=== PATIENT | male | born 1995 | race Caucasian/White ===

== ENCOUNTER 2017-10-05 20:19 | Emergency (ER) | payer MEDICAID, SELFPAY ==
[2017-10-05 20:20] VITALS: BP 128/95; PULSE 82; RESP 16; TEMP 37.2; O2SAT 97; BMI 18.2
--- NOTE | 2017-10-05 20:59 | ED.VISSUMM ---
- ER Visit Summary Date of Service: 10/05/17 Chief Complaint: [] Right lower incisor dental pain started yesterday or today History of Present Illness: The patient is a 22 M [] symptoms for a few days he indicates he began with pain over her his right lower incisor has a history of dental decay infections, most of his upper teeth has been removed and he has a partial denture he has had no fever no cough, no trauma no difficult swallowing or breathing. He points directly to the right lower incisor as the focus of his pain Physical Examination: [] Lying flat in the bed is no distress he is afebrile he has pain over this tooth he has some minimal swelling over the gumline here. His tongue is flat his airways intact he is able to open his mouth fully. There is no signs of deep space infection airway compromise or anything life-threatening or acute, he has some scattered other dental decay and again he has a partial upper denture, he assures me he has had no trauma no fever Test Results: [] Emergency Department Course and Treatment: [] Splint all the above to the patient I explained the concept of an infection involving the tooth could spread to the rest of his mouth and cause serious complications that could be life-threatening, at this time he started on Pen-Vee K, he is given one [place] a shot of Toradol and he does have a dentist he can see in a few days and return for change in symptoms and complete the penicillin prescription Treatment Plan: [] Disposition: [] Home stable Impression: [] Dental infection causing dental pain This note was generated with [employer] dictation software. It may contain incorrect words, spelling, and punctuation that were not noted in review of the chart prior to signing ED Disposition - Plan for ED Patient: Chief Complaint: Dental Referrals: Care Physician,No Primary [Primary Care Provider] -
--- NOTE | 2017-10-05 21:05 | ED.DCSUM_ITS ---
- ER Visit Summary Date of Service: 10/05/17 Chief Complaint: [] Right lower incisor dental pain started yesterday or today History of Present Illness: The patient is a 22 M [] symptoms for a few days he indicates he began with pain over her his right lower incisor has a history of dental decay infections, most of his upper teeth has been removed and he has a partial denture he has had no fever no cough, no trauma no difficult swallowing or breathing. He points directly to the right lower incisor as the focus of his pain Physical Examination: [] Lying flat in the bed is no distress he is afebrile he has pain over this tooth he has some minimal swelling over the gumline here. His tongue is flat his airways intact he is able to open his mouth fully. There is no signs of deep space infection airway compromise or anything life- threatening or acute, he has some scattered other dental decay and again he has a partial upper denture, he assures me he has had no trauma no fever Test Results: [] Emergency Department Course and Treatment: [] Splint all the above to the patient I explained the concept of an infection involving the tooth could spread to the rest of his mouth and cause serious complications that could be life-threatening, at this time he started on Pen-Vee K, he is given one [place] a shot of Toradol and he does have a dentist he can see in a few days and return for change in symptoms and complete the penicillin prescription Treatment Plan: [] Disposition: [] Home stable Impression: [] Dental infection causing dental pain This note was generated with [employer] dictation software. It may contain incorrect words, spelling, and punctuation that were not noted in review of the chart prior to signing ED Disposition - Plan for ED Patient: Chief Complaint: Dental Referrals: Care Physician,No Primary [Primary Care Provider] -
--- NOTE | 2017-10-05 21:05 | ED.DEP ---
ED Disposition - Plan for ED Patient: Chief Complaint: Dental Instructions: ED Tooth Pain Prescriptions: Hydrocodone Bitart/Apap 5-325 [[place] 5/325] 1 - 2 tab PO Q4H PRN PRN #12 tab PRN Reason: Pain Naproxen [Naprosyn] 500 mg PO BID PRN #20 tab Penicillin V Potassium 500 mg PO 4X/DAY #40 tab Referrals: Care Physician,No Primary [Primary Care Provider] -
--- NOTE | 2017-10-05 21:09 | DCINST.ED_ITS ---
ED Disposition - Plan for ED Patient: Chief Complaint: Dental Instructions: ED Tooth Pain Prescriptions: Hydrocodone Bitart/Apap 5-325 [[place] 5/325] 1 - 2 tab PO Q4H PRN PRN #12 tab PRN Reason: Pain Naproxen [Naprosyn] 500 mg PO BID PRN #20 tab Penicillin V Potassium 500 mg PO 4X/DAY #40 tab Referrals: Care Physician,No Primary [Primary Care Provider] -
[2017-10-05] MEDS: Ketorolac 30 MG/ML Syringe IM (21:16)
== END 2017-10-05 21:31 | disposition home or self-care (01) ==
PROVIDERS: Emergency Provider Emergency Medicine
DX: K08.89 Other specified disorders of teeth and supporting structures (principal)
CPT/HCPCS: 96372; 99281

== ENCOUNTER 2017-12-07 16:44 | Emergency (ER) | payer MEDICAID, SELFPAY ==
[2017-12-07 16:46] VITALS: BP 139/64; PULSE 81; RESP 16; TEMP 37.5; O2SAT 100; BMI 20.9
--- NOTE | 2017-12-07 16:55 | EKG12_ITS ---
Test Reason : DYSRHYTHMIA Blood Pressure : / mmHG Vent. Rate : 069 BPM Atrial Rate : 069 BPM P-R Int : 142 ms QRS Dur : 086 ms QT Int : 348 ms P-R-T Axes : 047 086 077 degrees QTc Int : 372 ms Normal sinus rhythm Normal ECG Confirmed by ASHKAN MCDONNELL, ALEX ([id number]), acquisitions editor EVELIN LOPEZ ([id number] on 12/09/2017 1:46:24 PM Referred By: CECILIO Confirmed By:ALEX LUTHER MD
--- NOTE | 2017-12-07 17:00 | RAD_ITS ---
STUDY: X-RAY CHEST REASON FOR EXAM: Male, 22 years old. Left-sided chest pain and shortness of breath TECHNIQUE: PA and lateral views of the chest. COMPARISON: None. FINDINGS: The lungs are clear and expanded. There is no demonstrated pleural abnormality. Normal size heart. Normal mediastinum and sohail. Normal visualized pulmonary arteries. Normal visualized aortic arch and descending thoracic aorta. Normal visualized thoracic spine. Normal visualized ribs, clavicles, and shoulders. There is no demonstrated abnormality of the visualized soft tissue structures of the upper abdomen. RAD/Chest PA and Lateral IMPRESSION: Normal x-ray examination of the chest. Electronically Signed: David Islas DO at 17:41 EDT Tel , Service support ,
--- NOTE | 2017-12-07 17:03 | ED.VISSUMM ---
- ER Visit Summary Date of Service: 12/07/17 Chief Complaint: Chest pain History of Present Illness: The patient is a 22 M who states that he has a right-sided sharp chest pain that began this morning. He notes a brief episode last Saturday. It resolved is fine during the week until Saturday when he had another brief episode today it was present this morning has been present since. He notes that it is sharp worse with movement and with palpation. He denies any known trauma. He denies any heavy lifting or strenuous activity. He notes that he is a smoker and has been sleeping recently. He coughed forcefully on Saturday and had a small amount of blood with some sputum. No fevers. Other than that episode no significant cough. No rashes. No vomiting or diarrhea. No difficulty with food. No recent travel. PERC negative. Physical Examination: Afebrile vital signs are stable Gen: Well-nourished well-developed Head: Normocephalic atraumatic Eyes: Perrl EOMI ENT: TMs clear no rhinorrhea moist mucous membranes Neck: Supple no lymphadenopathy no JVD nontender CVS: Regular rate rhythm no murmurs normal S1-S2 Respiratory: No distress clear to auscultation bilaterally right anterior chest wall is tender to palpation which the patient states reproduces his symptoms. Abdomen: Soft nontender nondistended normal bowel sounds no masses Back: Nontender Extremity: Nontender no edema Skin: Normal color no rash Neuro: alert orientated ?3 CN II-XII intact normal strength sensation reflexes gait cerebellar Psych: Normal affect normal mood Test Results: EKG shows a normal sinus rhythm at a rate of 69. Chest x-ray is negative. Emergency Department Course and Treatment: I believe this is most likely chest wall related pain. It is reproducible. Patient be discharged home with instructions for anti-inflammatories and to return if worsening. Impression: 1. Right chest wall pain This note was generated with [employer] dictation software. It may contain incorrect words, spelling, and punctuation that were not noted in review of the chart prior to signing ED Disposition - Plan for ED Patient: Disposition: Home or Assisted Living Chief Complaint: Chest Pain Instructions: ED Chest Pain Pleurisy, ED Chest Pain Costochondritis Prescriptions: Ibuprofen [Motrin] 800 mg PO TID PRN PRN #20 tab PRN Reason: Pain Referrals: Care Physician,No Primary [Primary Care Provider] - Additional Instructions: Return if worsening or concerns.
== END 2017-12-07 18:26 | disposition home or self-care (01) ==
PROVIDERS: Emergency Provider Emergency Medicine
DX: R07.89 Other chest pain (principal); R05 Cough; R06.00 Dyspnea, unspecified; Z72.0 Tobacco use
CPT/HCPCS: 71046; 93005; 99282